=== PATIENT | male | born 1955 | race Caucasian/White ===

== ENCOUNTER 2023-06-20 08:02 | Day surgery (SDC) | payer MEDICARE, OTHER ==
[2023-06-20] VITALS (9 sets, daily range): BP systolic 132–153; BP diastolic 75–86; PULSE 74–84; RESP 13–16; TEMP 98.1; O2SAT 90–95
[~2023-06-20] VITALS: Ht 170.2 cm; Wt 111.6 kg
[~2023-06-20 08:02] MED LIST: ACET-1304 PO; ALBU108A5 IN; ASPI-543 PO; CHOL20007 OR; CICL8SOL21 TOP; CLOT1CRE51 TOP; COEN30CA7 PO; DICL0.1S20 OP; EPIN0.3I27 IJ; GLUC1TAB18 PO; LIDO5DIS21 TOP; MULT-928 PO; OMEG120015 PO; OMEP20TA PO; POM; POM PO; PROB1CHW4 PO; PSYL58.632 PO; PYRI1TAB10 PO; ROSU10TA16 PO; TRAM50TA2 PO; TURM500C3 OR; WITCPAD EX; ZOLP10TA PO; [UNRECOGNIZED DRUG - CODE] EX
[2023-06-20] MEDS ORDERED: LIDOCAINE 2%HCL (LOCAL ANESTH.) INJ 20ML MDV ONE (08:54)
[2023-06-20] MEDS ORDERED: IODIXANOL 320MG/ML 100ML BTL IV ONE (08:54)
[2023-06-20] MEDS ORDERED: IOHEXOL 350 MG/ML 100ML IJ ONE ×2 (08:55→09:49)
[2023-06-20] MEDS ORDERED: VERAPAMIL 2.5MG/ML INJ 2ML VIAL IV ONE (09:06)
[2023-06-20] MEDS ORDERED: ANGIOMAX 250 MG VIAL IV ONE (09:06)
[2023-06-20] MEDS ORDERED: fentaNYL CITRATE 100 MCG/2 ML VL ONE (09:06)
[2023-06-20] MEDS ORDERED: MIDAZOLAM HCL 2MG/2ML 2ml VIAL (1mg/ml) ONE (09:07)
[2023-06-20] MEDS ORDERED: SODIUM CHL 0.9% 0 ML ONE (09:07)
[2023-06-20] MEDS ORDERED: SODIUM CHL 0.9% 50 ML ONE (09:12)
[2023-06-20] MEDS ORDERED: HEPARIN SODIUM (PORCINE) 5000 UNITS/ML 1ML VIAL ONE (09:52)
== END 2023-06-20 12:20 | disposition home or self-care (01) ==
LOC: CATH 08:02
PROVIDERS: ATTEND Internal Medicine
DX: R94.39 Abnormal result of other cardiovascular function study (principal); I25.118 Atherosclerotic heart disease of native coronary artery with other forms of angina pectoris; Z88.0 Allergy status to penicillin; Z88.2 Allergy status to sulfonamides; Z79.899 Other long term (current) drug therapy; Z88.8 Allergy status to other drugs, medicaments and biological substances; Z98.890 Other specified postprocedural states
CPT/HCPCS: 93458; C1769; C1894; J1644; J2250; J3010; Q9967; 99152